=== PATIENT | female | born 1930 | race Caucasian/White ===

== ENCOUNTER 2016-02-20 11:49 | Inpatient (IN) | payer MEDICARE ==
[2016-02-20 13:36] LABS: Basophils % (Auto) 0.7 % (0.0-1.8); Eosinophils % (Auto) 2.3 % (0.0-4.3); Hematocrit 39.2 % (30.3-42.9); Hemoglobin 12.8 gm/dl (10.1-14.3); Mean Corpuscular HGB Conc 33 % (30-34); Mean Corpuscular Hemoglobin 29 pg (28-32); Mean Corpuscular Volume 89 fl (79-97); Platelet Count 228 K/mm3 (140-440); Red Blood Count 4.42 M/mm3 (3.65-5.03); Red Cell Distribution Width 13.7 % (13.2-15.2); White Blood Count 9.1 K/mm3 (4.5-11.0)
[2016-02-20 13:50] LABS: Bilirubin,Urine NEG (Negative); Blood,Urine SM (Negative); Ketones,Urine NEG (Negative); Leukocyte Esterase,Urine NEG (Negative); Nitrite,Urine NEG (Negative); Urobilinogen,Urine < 2.0 mg/dL (<2.0); WBC,Urine < 1.0 /HPF (0.0-6.0)
[2016-02-20 13:51] LABS: Partial Thromboplastin Time 43.9 Sec. (24.2-36.6)
[2016-02-20 13:55] LABS: Creatine Kinase MB 2.9 ng/mL (0.0-4.0)
[2016-02-20 13:58] LABS: Anion Gap 22 mmol/L; BUN/Creatinine Ratio 24.28; Blood Urea Nitrogen 17 mg/dL (7-17); Calcium 9.1 mg/dL (8.4-10.2); Carbon Dioxide 24 mmol/L (22-30); Chloride 97.8 mmol/L (98-107); Creatine Kinase 140 units/L (30-135); Glucose 221 mg/dL (65-100); Potassium 4.3 mmol/L (3.6-5.0); Sodium 139 mmol/L (137-145)
[2016-02-20] MEDS ORDERED: PROVENTIL IH ONE (15:07)
[2016-02-20] MEDS ORDERED: ATROVENT IH ONE (15:07)
[2016-02-20] MEDS ORDERED: DELTASONE PO ONE (15:07)
--- NOTE | 2016-02-20 15:49 | Emergency Department Report ---
HPI - General Chief Complaint: Dyspnea/Respdistress Time Seen by Provider: 02/20/16 12:07 - HPI HPI: Chief complaint: Shortness of breath and cough HPI: Patient is an 86-year-old female with a history of asthma is been gradually having worse shortness of breath and wheezing and coughing since Monday. Patient saw her primary care doctor on Monday and was diagnosed with possible pneumonia. Patient was given an antibiotic and cough medication but she seems to be getting worse. Patient was brought in by EMS and noted a pulse ox of 94. Patient given an albuterol treatment with some improvement. Mode of arrival: EMS Source: Patient and family member Began: Monday Duration: Continuous Context: See above Quality: Soreness with cough Severity: 4] out of 10 Improved with: Nebulizer Worsened with: Shortness of breath worse on exertion Associated signs and symptoms: No nausea, vomiting, diarrhea or fever. Positive white sputum production. ED Past Medical Hx - Past Medical History Previous Medical History?: Yes Hx Hypertension: Yes Hx Heart Attack/AMI: Yes Hx Congestive Heart Failure: Yes Hx Diabetes: Yes Hx Asthma: Yes - Surgical History Additional Surgical History: bypass - Social History Smoking Status: Never Smoker Substance Use Type: None - Medications Home Medications: Home Medications Medication Instructions Recorded Confirmed Last Taken Type Hydrochlorothiazide 02/20/16 Unknown History Insulin Glargine 20 units SQ QHS MDD 20-30 units 02/20/16 02/20/16 Unknown History sliding scale >200 Lipitor 10 mg PO QDAY 02/20/16 02/20/16 Unknown History Warfarin 0.5 mg PO QDAY 02/20/16 02/20/16 Unknown History glipiZIDE 0.5 mg PO QDAY 02/20/16 02/20/16 Unknown History metFORMIN 1,000 mg PO BID 02/20/16 02/20/16 Unknown History ED Review of Systems ROS: Stated complaint: SOB Other details as noted in HPI ROS Constitutional: No fever ENT: No uri symptoms Cardiovascular: No chest pain Respiratory: See HPI GI: No nausea vomiting or diarrhea : No dysuria frequency or urgency, Skin: No rash Neuro: No focal weakness or numbness Psych: No depression Juancarlos/lymph: No edema Physical Exam - Physical Exam Vital Signs: Vital Signs 02/20/16 12:14 Temperature 99.5 F Pulse Rate 106 H Respiratory 22 Rate Blood Pressure 176/71 [Right] O2 Sat by Pulse 95 Oximetry Physical Exam: GENERAL: The patient is well-developed well-nourished . HEENT: Normocephalic. Atraumatic. Extraocular motions are intact. Patient has moist mucous membranes. NECK: Supple. No meningitic signs are noted. There is no adenopathy noted. CHEST/LUNGS: Scattered expiratory wheezes. There is no respiratory distress noted. HEART/CARDIOVASCULAR: Regular. There is no tachycardia. There is no gallop rub or murmur. ABDOMEN: Abdomen is soft, nontender. Patient has normal bowel sounds. There is no abdominal distention. SKIN: There is no rash. There is no edema. There is no diaphoresis. NEURO: The patient is awake, alert, and oriented. The patient is cooperative. The patient has no focal neurologic deficits. The patient has normal speech. MUSCULOSKELETAL: There is no tenderness or deformity. There is no limitation range of motion. There is no evidence of acute injury. ED Course Vital Signs 02/20/16 12:14 Temperature 99.5 F Pulse Rate 106 H Respiratory 22 Rate Blood Pressure 176/71 [Right] O2 Sat by Pulse 95 Oximetry - Reevaluation(s) Reevaluation #1: 02/20/16 Patient treated with a nebulizer treatment and 60 mg of oral prednisone and has persistent exertional shortness of breath. ED Medical Decision Making - Lab Data Result diagrams: 02/20/16 13:23 02/20/16 13:23 Laboratory Tests 02/20/16 02/20/16 02/20/16 13:23 13:23 13:29 PT 22.7 H INR 2.00 H APTT 43.9 H Total Creatine Kinase 140 H CK-MB (CK-2) 2.9 CK-MB (CK-2) Rel Index 2.0 Troponin T < 0.010 Urine pH 7.0 Ur Specific [place] 1.013 Urine Protein 100 mg/dl Urine Glucose (UA) >=500 Urine Ketones Neg Urine Blood Sm Urine Urobilinogen < 2.0 Ur Leukocyte Esterase Neg Urine WBC (Auto) < 1.0 Urine RBC (Auto) 4.0 - EKG Data -: EKG Interpreted by Nj EKG shows normal: sinus rhythm Rate: tachycardia (109) - EKG Data When compared to previous EKG there are: previous EKG unavailable Interpretation: nonspecific ST-T wave oskar - Radiology Data interpreted by me: Chest x-ray shows no acute process. Critical care attestation.: If time is entered above; I have spent that time in minutes in the direct care of this critically ill patient, excluding procedure time. ED Disposition Clinical Impression: Asthmatic bronchitis Qualifiers: Asthma severity: moderate persistent Asthma complication type: with acute exacerbation Qualified Code(s): J45.41 - Moderate persistent asthma with (acute ) exacerbation Disposition: OP ADMITTED IP TO THIS HOSP Is pt being admited?: Yes Does the pt Need Aspirin: Yes Condition: Fair Time of Disposition: 15:50 (admit to the hospitalist)
[2016-02-20] MEDS ORDERED: ASPIRIN PO ONE (15:51)
[2016-02-20] MEDS ORDERED: APRESOLINE ONE (16:25)
[2016-02-20] MEDS ORDERED: APRESOLINE IV ONE (16:44)
--- NOTE | 2016-02-20 18:35 | Event Note ---
Date: 02/20/16 See H/p in reports Asthma exacerbation Acute Bronchitis not responding to out patient treatment IDDM Anticoagulation
[2016-02-20] MEDS ORDERED: DULCOLAX PR PRN (18:44)
[2016-02-20] MEDS ORDERED: MILK OF MAGNESIA PO PRN (18:44)
[2016-02-20] MEDS ORDERED: TYLENOL PO PRN (18:44)
[2016-02-20] MEDS ORDERED: WARFARIN 0.5 MG PO SCH (18:45)
[2016-02-20] MEDS ORDERED: DUONEB 0.5 MG-3 MG/3 ML SOLN IH PRN (18:53)
[2016-02-20] MEDS ORDERED: PROVENTIL IH PRN (19:14)
[2016-02-20] MEDS ORDERED: D5NS 1,000 ML IV SCH (20:00)
[2016-02-20] MEDS ORDERED: NOVOLOG SUB-Q ONE (20:00)
--- NOTE | 2016-02-20 20:59 | History and Physical Report ---
CHIEF COMPLAINT: Increasing shortness of breath and wheezing for the last 2 days. Also, low-grade fever for 2 days. HISTORY OF PRESENT ILLNESS: This 86-year-old with history of insulin-dependent diabetes, anticoagulation, comes in for cough productive of yellow sputum and shortness of breath with wheezing for the last 2 days. The patient has mild respiratory distress. No chest pain, no palpitations. PAST MEDICAL HISTORY: Significant for hypertension, but not on any hypertensive medications, coronary artery disease, hyperlipidemia, congestive heart failure, insulin-dependent diabetes, and asthma. PAST SURGICAL HISTORY: Coronary artery bypass. SOCIAL HISTORY: Does not smoke. No alcohol, no recreational drugs. Lives with family. FAMILY HISTORY: Significant for coronary artery disease and hypertension. CURRENT MEDICATIONS: Hydrochlorothiazide 25 mg daily, Lipitor 10 mg p.o. daily, glipizide 0.5 p.o. daily, metformin 1000 mg p.o. b.i.d., Glargine insulin 20 units subcutaneous at bedtime, and Coumadin 5 mg daily. REVIEW OF SYSTEMS: Significant for cough, shortness of breath and wheezing and cough productive of yellow sputum and low grade fever. Otherwise, review of systems is essentially negative. PHYSICAL EXAMINATION: GENERAL: Elderly female, cooperative during examination, coughing while examining her. VITAL SIGNS: Temperature is 99.5, pulse is 106, respirations 22, blood pressure is 176/71, and sats 95%. HEENT: Unremarkable. Pupils equal and reactive. NECK: Supple, no lymphadenopathy, no thyromegaly. LUNGS: Bilateral inspiratory and expiratory rhonchi present. CARDIOVASCULAR: S1, S2 heard. No gallop, no murmur, no rub. Apical impulse in left fifth intercostal space and midclavicular line. ABDOMEN: Soft and benign. No hepatosplenomegaly. No guarding, no rigidity. Hernial orifices are normal. EXTREMITIES: Good pedal pulses. No pedal edema. CENTRAL NERVOUS SYSTEM: Alert and oriented x 4, nonfocal exam. Cranial nerves are normal. Power is 5/5 in all four extremities. LABORATORY DATA: Show white count of 9100, H and H is 12.8 and 39.8, platelet count is 228,000. INR is 2.0. Sodium is 139, potassium is 4.3, chloride is 97.8, BUN and creatinine is 17 and 0.7. Glucose is 221, total creatinine kinase is 140. Urine protein is 100. Urine glucose is more than 500. Chest x-ray does not show any infiltrates. A brief exam shows bilateral inspiratory and expiratory rhonchi present. Labs already mentioned. ASSESSMENT AND PLAN: 1. Asthma exacerbation. The patient was started on DuoNeb, Levaquin and Solu-Medrol 60 mg q. 8 hours. 2. Hypertension. The patient is on hydrochlorothiazide at home. We will change to losartan 100 mg daily. 3. Insulin-dependent diabetes mellitus, on insulin Glargine and oral hypoglycemics. We will stop the oral hypoglycemics and just do the Lantus and basal insulin coverage. 4. Anticoagulation for atrial fibrillation. Continue Coumadin at 5 mg daily. 5. Hyperlipidemia. Continue Lipitor. DISCHARGE PLANNING ISSUES: The patient will be discharged only on Lantus and no oral hypoglycemics like metformin or glipizide. The patient to be discharged on basal bolus insulin. DVT prophylaxis, Lovenox 40 mg subcutaneous daily. JOB# [id number] AMY/DANY
[2016-02-20] MEDS: LEVAQUIN 750MG/150ML 150 ML IV SCH (21:00)
[2016-02-20] MEDS: NACL 0.45% 1000 ML 1,000 ML IV SCH (21:24)
[2016-02-20] MEDS: DUONEB 0.5 MG-3 MG/3 ML SOLN IH SCH (21:39)
[2016-02-20] MEDS ORDERED: NON-FORMULARY (Insulin Glargine 20 UNITS) SQ SCH (22:00)
[2016-02-20] MEDS ORDERED: LEVEMIR SUB-Q SCH (22:00)
[2016-02-20] MEDS: PERCOCET 5/325 PO PRN (22:35)
--- NOTE | 2016-02-21 00:13 | Admit Criteria Form ---
Admission Criteria Documentation: ASTHMA Clinical Indications for Admission to Inpatient Care (Place 'X' for any and all applicable criteria): Admission is indicated for ANY ONE of the following (1)(2)(3)(4)(5): [ ]I. Absent or markedly diminished breath sounds (silent chest) [ ]II. Oxygen saturation < 92% [ ]III. PaCO2 = / > 42 mm Hg (5.6 kPa) [ ]IV. Peak expiratory flow rate < 40% of predicted or personal best after treatment. [ ]V. Peak expiratory flow rate < 33% of predicted or personal before after treatment [ ]. Change in mental status [ ]VII. Ventilatory support required [ ]VIII. PaO2 < 60 mm Hg (8.0 kPa) [ ]IX. Cyanosis [ ]X. Cardiac dysrhythmia (e.g., bradycardia) [ ]XI. Hemodynamic instability [ ]XII. Radiographic evidence of complication requiring inpatient treatment (e.g., pneumonia, pneumothorax) [X ]XIII. Inpatient admission required rather than observation care (also use Asthma: Observation Care guideline as appropriate) because of ANY ONE of the following: [X ]a) Respiratory finding that is severe or persistent (eg, dyspnea, tachypnea, accessory muscle use) [ ]b) Airflow measurements less than 60% of predicted or personal best that persist (e.g., over 24 hours) or worsen despite treatments [ ]c) Supplemental oxygen or respiratory treatments for over 24 hours that are performable only in acute inpatient setting [ ]d) Other condition, treatment or monitoring requiring inpatient admission. Extended stay beyond goal length of stay may be needed for (26)(27)(28): [ ]a) Severe respiratory failure (23) (29) (30) [ ]b) Secondary causes and complications (25) [ ]c) Status asthmaticus [ ]d) Chronic obstructive asthma [ ]e) Older patients (29) [ ]f) Slow resolution [ ]g) Clinically significant exacerbation of comorbidities (eg, josh. heart failure, atrial fibrillation) The original [employer] content created by [employer] has been revised. The portions of the content which have been revised are identified through the use of italic text or in bold, and [email or web address] has neither reviewed nor approved the modified material. All other unmodified content is copyright [employer] Please see references footnoted in the original [facility] edition 2016 Admission Criteria Met: Yes
[2016-02-21] MEDS: ZOFRAN IV PRN (01:29)
[2016-02-21] MEDS: DUONEB 0.5 MG-3 MG/3 ML SOLN IH SCH ×4 (02:45→19:37)
[2016-02-21] MEDS: TESSALON PERLES PO SCH ×2 (06:21→22:25)
[2016-02-21 06:27] LABS: Basophils % (Auto) 0.2 % (0.0-1.8); Hematocrit 38.5 % (30.3-42.9); Hemoglobin 12.4 gm/dl (10.1-14.3); Mean Corpuscular HGB Conc 32 % (30-34); Mean Corpuscular Hemoglobin 29 pg (28-32); Mean Corpuscular Volume 89 fl (79-97); Platelet Count 228 K/mm3 (140-440); Red Blood Count 4.34 M/mm3 (3.65-5.03); Red Cell Distribution Width 13.8 % (13.2-15.2); White Blood Count 6.4 K/mm3 (4.5-11.0)
[2016-02-21 06:48] LABS: Anion Gap 21 mmol/L; Blood Urea Nitrogen 24 mg/dL (7-17); Calcium 8.7 mg/dL (8.4-10.2); Carbon Dioxide 22 mmol/L (22-30); Chloride 96.3 mmol/L (98-107); Glucose 346 mg/dL (65-100); Sodium 135 mmol/L (137-145)
[2016-02-21 06:51] LABS: INR 1.56 (0.87-1.13)
--- NOTE | 2016-02-21 10:30 | XRay Report ---
CHEST X-RAY, 2 VIEWS History: Chest pain. Findings: Interval CABG changes since 10/16/10. Heart size and pulmonary vascularity are within normal limits. The lungs are clear. There is suggestion of a trace left pleural effusion. No pneumothorax. The bony structures are demineralized with diffuse arthritic changes. Impression: Trace left pleural effusion.
[2016-02-21] MEDS: LOVENOX SUB-Q SCH (10:37)
[2016-02-21] MEDS: NOVOLOG SUB-Q SCH ×3 (14:21→22:21)
[2016-02-21] MEDS ORDERED: COUMADIN PO SCH (17:00)
--- NOTE | 2016-02-21 18:14 | Progress Note ---
Assessment and Plan Assessment and plan: 1. Asthma exacerbation Started on antibiotic, IV corticosteroids, inhaled bronchodilators, supplemental oxygen as needed Start tapering corticosteroids 2. Diabetes Blood sugars significantly elevated likely secondary to corticosteroid use Increased insulin dose Continue Accu-Cheks and SSI to assess insulin requirements 3. A. fib Anticoagulated with Coumadin, but INR subtherapeutic; adjust dose Not on any rate control medication based on the list available; patient is not Macedonian-speaking and no family member present HR in low 100s; start beta yoel and monitor 4. CAD and HTN per records, but not on any medications; will try to contact family 5. DVT prophylaxis Lovenox until INR becomes therapeutic on Coumadin History Interval history: Not Macedonian-speaking, no family member present to translate Seems to be in no discomfort Hospitalist Physical - Constitutional Vitals: Temp Pulse Resp BP Pulse Ox 97.8 F 119 H 20 139/71 67 L 02/21/16 07:30 02/21/16 13:11 02/21/16 13:11 02/21/16 07:30 02/21/16 07:30 General appearance: Present: no acute distress, obese - EENT Eyes: Present: PERRL, EOM intact. Absent: scleral icterus, conjunctival injection - Neck Neck: Present: supple, normal ROM. Absent: masses or JVD - Respiratory Respiratory effort: normal Respiratory: bilateral: diminished, rhonchi, wheezing - Cardiovascular Rhythm: irregularly irregular Heart Sounds: Present: S1 & S2. Absent: systolic murmur - Extremities Extremities: no ischemia - Abdominal General gastrointestinal: soft, non-tender, non-distended, normal bowel sounds - Neurologic Neurologic: moves all extremities Results - Labs CBC & Chem 7: 02/21/16 05:18 02/21/16 05:18 Labs: Laboratory Last Values WBC 6.4 K/mm3 (4.5-11.0) 02/21/16 05:18 RBC 4.34 M/mm3 (3.65-5.03) 02/21/16 05:18 Hgb 12.4 gm/dl (10.1-14.3) 02/21/16 05:18 Hct 38.5 % (30.3-42.9) 02/21/16 05:18 MCV 89 fl (79-97) 02/21/16 05:18 MCH 29 pg (28-32) 02/21/16 05:18 MCHC 32 % (30-34) 02/21/16 05:18 RDW 13.8 % (13.2-15.2) 02/21/16 05:18 Plt Count 228 K/mm3 (140-440) 02/21/16 05:18 Lymph % (Auto) 11.9 % (13.4-35.0) L 02/21/16 05:18 [place] % (Auto) 1.0 % (0.0-7.3) 02/21/16 05:18 Eos % (Auto) 0.0 % (0.0-4.3) 02/21/16 05:18 Baso % (Auto) 0.2 % (0.0-1.8) 02/21/16 05:18 Lymph # 0.8 K/mm3 (1.2-5.4) L 02/21/16 05:18 [place] # 0.1 K/mm3 (0.0-0.8) 02/21/16 05:18 Eos # 0.0 K/mm3 (0.0-0.4) 02/21/16 05:18 Baso # 0.0 K/mm3 (0.0-0.1) 02/21/16 05:18 Seg Neutrophils % 86.9 % (40.0-70.0) H 02/21/16 05:18 Seg Neutrophils # 5.6 K/mm3 (1.8-7.7) 02/21/16 05:18 PT 18.6 Sec. (12.2-14.9) H 02/21/16 05:18 INR 1.56 (0.87-1.13) H 02/21/16 05:18 APTT 43.9 Sec. (24.2-36.6) H 02/20/16 13:23 Sodium 135 mmol/L (137-145) L 02/21/16 05:18 Potassium 4.0 mmol/L (3.6-5.0) 02/21/16 05:18 Chloride 96.3 mmol/L (98-107) L 02/21/16 05:18 Carbon Dioxide 22 mmol/L (22-30) 02/21/16 05:18 Anion Gap 21 mmol/L 02/21/16 05:18 BUN 24 mg/dL (7-17) H 02/21/16 05:18 Creatinine 0.8 mg/dL (0.7-1.2) 02/21/16 05:18 Estimated GFR > 60 ml/min 02/21/16 05:18 BUN/Creatinine Ratio 30.00 % 02/21/16 05:18 Glucose 346 mg/dL (65-100) H 02/21/16 05:18 POC Glucose 299 (70-105) H 02/21/16 17:31 Hemoglobin A1c 10.9 % (4-6) H 02/20/16 13:23 Calcium 8.7 mg/dL (8.4-10.2) 02/21/16 05:18 Total Creatine Kinase 140 units/L (30-135) H 02/20/16 13:23 CK-MB (CK-2) 2.9 ng/mL (0.0-4.0) 02/20/16 13:23 CK-MB (CK-2) Rel Index 2.0 (0-4) 02/20/16 13:23 Troponin T < 0.010 ng/mL (0.00-0.029) 02/20/16 13:23 NT-Pro-B Natriuret Pep 303.7 pg/mL (0-900) 02/20/16 13:23 Urine Color Straw (Yellow) 02/20/16 13:29 Urine Turbidity Clear (Clear) 02/20/16 13:29 Urine pH 7.0 (5.0-7.0) 02/20/16 13:29 Ur Specific [place] 1.013 (1.003-1.030) 02/20/16 13:29 Urine Protein 100 mg/dl mg/dL (Negative) 02/20/16 13:29 Urine Glucose (UA) >=500 mg/dL (Negative) 02/20/16 13:29 Urine Ketones Neg mg/dL (Negative) 02/20/16 13:29 Urine Blood Sm (Negative) 02/20/16 13:29 Urine Nitrite Neg (Negative) 02/20/16 13:29 Urine Bilirubin Neg (Negative) 02/20/16 13:29 Urine Urobilinogen < 2.0 mg/dL (<2.0) 02/20/16 13:29 Ur Leukocyte Esterase Neg (Negative) 02/20/16 13:29 Urine WBC (Auto) < 1.0 /HPF (0.0-6.0) 02/20/16 13:29 Urine RBC (Auto) 4.0 /HPF (0.0-6.0) 02/20/16 13:29
[2016-02-21] MEDS: LEVAQUIN 750MG/150ML 150 ML IV SCH (22:13)
[2016-02-21] MEDS: LEVEMIR SUB-Q SCH (22:22)
[2016-02-21] MEDS: LOPRESSOR PO SCH (22:29)
[2016-02-22] MEDS: ZOFRAN IV PRN (02:28)
[2016-02-22] MEDS: PERCOCET 5/325 PO PRN (02:29)
[2016-02-22] MEDS: DUONEB 0.5 MG-3 MG/3 ML SOLN IH SCH ×4 (02:38→19:49)
[2016-02-22] MEDS: NACL 0.45% 1000 ML 1,000 ML IV SCH ×2 (05:25→18:22)
[2016-02-22 06:38] LABS: INR 1.54 (0.87-1.13)
[2016-02-22] MEDS: NOVOLOG SUB-Q SCH ×4 (09:06→23:43)
[2016-02-22] MEDS ORDERED: PROVENTIL IH PRN (09:14)
[2016-02-22] MEDS: LOVENOX SUB-Q SCH (12:28)
[2016-02-22] MEDS: LOPRESSOR PO SCH ×2 (12:29→21:09)
[2016-02-22] MEDS: TESSALON PERLES PO SCH ×2 (12:29→21:08)
[2016-02-22] MEDS ORDERED: COUMADIN PO SCH (17:00)
--- NOTE | 2016-02-22 18:35 | Progress Note ---
Assessment and Plan Assessment and plan: 1. Asthma exacerbation Started on antibiotic, IV corticosteroids, inhaled bronchodilators, supplemental oxygen as needed Tapering corticosteroids Slow improvement 2. Diabetes Blood sugars significantly elevated likely secondary to corticosteroid use Adjusting insulin dose Continue Accu-Cheks and SSI 3. A. fib Anticoagulated with Coumadin, but INR subtherapeutic; adjusting dose Not on any rate control medication based on the list available HR in low 100s; started on beta yoel yesterday Monitor and adjust dose 4. CAD and HTN per records, but not on any medications; trying to contact family 5. DVT prophylaxis Lovenox until INR becomes therapeutic on Coumadin History Interval history: Not Latvian-speaking, a family member present today to translate; complains of chest tightness, shortness of breath improved Hospitalist Physical - Constitutional Vitals: Temp Pulse Resp BP Pulse Ox 98 F 100 H 16 162/76 94 02/22/16 07:00 02/22/16 14:03 02/22/16 14:03 02/22/16 07:00 02/22/16 09:13 General appearance: Present: no acute distress, obese - EENT Eyes: Present: PERRL, EOM intact. Absent: scleral icterus, conjunctival injection - Neck Neck: Present: supple, normal ROM. Absent: masses or JVD - Respiratory Respiratory effort: normal Respiratory: bilateral: diminished, wheezing (expiratory wheezes), negative: rhonchi - Cardiovascular Rhythm: irregularly irregular Heart Sounds: Present: S1 & S2. Absent: systolic murmur - Extremities Extremities: no ischemia - Abdominal General gastrointestinal: soft, non-tender, non-distended, normal bowel sounds - Neurologic Neurologic: CNII-XII intact, no focal deficits Results - Labs CBC & Chem 7: 02/21/16 05:18 02/21/16 05:18 Labs: Laboratory Last Values WBC 6.4 K/mm3 (4.5-11.0) 02/21/16 05:18 RBC 4.34 M/mm3 (3.65-5.03) 02/21/16 05:18 Hgb 12.4 gm/dl (10.1-14.3) 02/21/16 05:18 Hct 38.5 % (30.3-42.9) 02/21/16 05:18 MCV 89 fl (79-97) 02/21/16 05:18 MCH 29 pg (28-32) 02/21/16 05:18 MCHC 32 % (30-34) 02/21/16 05:18 RDW 13.8 % (13.2-15.2) 02/21/16 05:18 Plt Count 228 K/mm3 (140-440) 02/21/16 05:18 Lymph % (Auto) 11.9 % (13.4-35.0) L 02/21/16 05:18 [place] % (Auto) 1.0 % (0.0-7.3) 02/21/16 05:18 Eos % (Auto) 0.0 % (0.0-4.3) 02/21/16 05:18 Baso % (Auto) 0.2 % (0.0-1.8) 02/21/16 05:18 Lymph # 0.8 K/mm3 (1.2-5.4) L 02/21/16 05:18 [place] # 0.1 K/mm3 (0.0-0.8) 02/21/16 05:18 Eos # 0.0 K/mm3 (0.0-0.4) 02/21/16 05:18 Baso # 0.0 K/mm3 (0.0-0.1) 02/21/16 05:18 Seg Neutrophils % 86.9 % (40.0-70.0) H 02/21/16 05:18 Seg Neutrophils # 5.6 K/mm3 (1.8-7.7) 02/21/16 05:18 PT 18.5 Sec. (12.2-14.9) H 02/22/16 05:19 INR 1.54 (0.87-1.13) H 02/22/16 05:19 APTT 43.9 Sec. (24.2-36.6) H 02/20/16 13:23 Sodium 135 mmol/L (137-145) L 02/21/16 05:18 Potassium 4.0 mmol/L (3.6-5.0) 02/21/16 05:18 Chloride 96.3 mmol/L (98-107) L 02/21/16 05:18 Carbon Dioxide 22 mmol/L (22-30) 02/21/16 05:18 Anion Gap 21 mmol/L 02/21/16 05:18 BUN 24 mg/dL (7-17) H 02/21/16 05:18 Creatinine 0.8 mg/dL (0.7-1.2) 02/21/16 05:18 Estimated GFR > 60 ml/min 02/21/16 05:18 BUN/Creatinine Ratio 30.00 % 02/21/16 05:18 Glucose 346 mg/dL (65-100) H 02/21/16 05:18 POC Glucose 267 (70-105) H 02/22/16 16:25 Hemoglobin A1c 10.9 % (4-6) H 02/20/16 13:23 Calcium 8.7 mg/dL (8.4-10.2) 02/21/16 05:18 Total Creatine Kinase 140 units/L (30-135) H 02/20/16 13:23 CK-MB (CK-2) 2.9 ng/mL (0.0-4.0) 02/20/16 13:23 CK-MB (CK-2) Rel Index 2.0 (0-4) 02/20/16 13:23 Troponin T < 0.010 ng/mL (0.00-0.029) 02/20/16 13:23 NT-Pro-B Natriuret Pep 303.7 pg/mL (0-900) 02/20/16 13:23 Urine Color Straw (Yellow) 02/20/16 13:29 Urine Turbidity Clear (Clear) 02/20/16 13:29 Urine pH 7.0 (5.0-7.0) 02/20/16 13:29 Ur Specific [place] 1.013 (1.003-1.030) 02/20/16 13:29 Urine Protein 100 mg/dl mg/dL (Negative) 02/20/16 13:29 Urine Glucose (UA) >=500 mg/dL (Negative) 02/20/16 13:29 Urine Ketones Neg mg/dL (Negative) 02/20/16 13:29 Urine Blood Sm (Negative) 02/20/16 13:29 Urine Nitrite Neg (Negative) 02/20/16 13:29 Urine Bilirubin Neg (Negative) 02/20/16 13:29 Urine Urobilinogen < 2.0 mg/dL (<2.0) 02/20/16 13:29 Ur Leukocyte Esterase Neg (Negative) 02/20/16 13:29 Urine WBC (Auto) < 1.0 /HPF (0.0-6.0) 02/20/16 13:29 Urine RBC (Auto) 4.0 /HPF (0.0-6.0) 02/20/16 13:29
[2016-02-22] MEDS: LEVAQUIN 750MG/150ML 150 ML IV SCH (21:04)
[2016-02-22] MEDS: LEVEMIR SUB-Q SCH (23:44)
[2016-02-23 05:48] LABS: INR 1.34 (0.87-1.13)
[2016-02-23] MEDS: DUONEB 0.5 MG-3 MG/3 ML SOLN IH SCH ×3 (07:56→19:58)
[2016-02-23] MEDS: NOVOLOG SUB-Q SCH ×4 (08:49→21:44)
[2016-02-23] MEDS: NACL 0.45% 1000 ML 1,000 ML IV SCH (09:21)
[2016-02-23] MEDS: TESSALON PERLES PO SCH ×2 (09:22→21:38)
[2016-02-23] MEDS: LOVENOX SUB-Q SCH ×2 (09:22→21:37)
[2016-02-23] MEDS: LOPRESSOR PO SCH ×2 (09:22→21:38)
[2016-02-23] MEDS ORDERED: LOVENOX SUB-Q SCH (11:00)
--- NOTE | 2016-02-23 16:45 | Progress Note ---
Assessment and Plan Assessment and plan: 1. Asthma exacerbation Started on antibiotic, IV corticosteroids, inhaled bronchodilators, supplemental oxygen as needed Tapering corticosteroids Slow improvement 2. Diabetes Blood sugars significantly elevated likely secondary to corticosteroid use Adjusting insulin dose Continue Accu-Cheks and SSI 3. A. fib Anticoagulated with Coumadin, but INR subtherapeutic; adjusting dose; further decrease today, so will use Lovenox treatment dose until INR becomes therapeutic Not on any rate control medication based on the list available HR in low 100s; started on beta yoel Monitor and adjust dose 4. CAD and HTN per records, but not on any medications; trying to discuss with family 5. DVT prophylaxis Lovenox until INR becomes therapeutic on Coumadin History Interval history: Not Iranian-speaking, a family member present today to translate; complains of chest discomfort Hospitalist Physical - Constitutional Vitals: Temp Pulse Resp BP Pulse Ox 99.1 F 88 18 165/73 97 02/23/16 06:55 02/23/16 13:45 02/23/16 13:45 02/23/16 06:55 02/23/16 07:55 General appearance: Present: no acute distress, obese - EENT Eyes: Present: PERRL, EOM intact. Absent: scleral icterus, conjunctival injection - Neck Neck: Present: supple, normal ROM. Absent: masses or JVD - Respiratory Respiratory effort: normal Respiratory: bilateral: diminished (coarse breath sounds), wheezing, negative: rales - Cardiovascular Rhythm: irregularly irregular Heart Sounds: Present: S1 & S2. Absent: systolic murmur - Extremities Extremities: no ischemia - Abdominal General gastrointestinal: soft, non-tender, non-distended, normal bowel sounds - Psychiatric Psychiatric: cooperative - Neurologic Neurologic: CNII-XII intact, no focal deficits Results - Labs CBC & Chem 7: 02/21/16 05:18 02/21/16 05:18 Labs: Laboratory Last Values WBC 6.4 K/mm3 (4.5-11.0) 02/21/16 05:18 RBC 4.34 M/mm3 (3.65-5.03) 02/21/16 05:18 Hgb 12.4 gm/dl (10.1-14.3) 02/21/16 05:18 Hct 38.5 % (30.3-42.9) 02/21/16 05:18 MCV 89 fl (79-97) 02/21/16 05:18 MCH 29 pg (28-32) 02/21/16 05:18 MCHC 32 % (30-34) 02/21/16 05:18 RDW 13.8 % (13.2-15.2) 02/21/16 05:18 Plt Count 228 K/mm3 (140-440) 02/21/16 05:18 Lymph % (Auto) 11.9 % (13.4-35.0) L 02/21/16 05:18 [place] % (Auto) 1.0 % (0.0-7.3) 02/21/16 05:18 Eos % (Auto) 0.0 % (0.0-4.3) 02/21/16 05:18 Baso % (Auto) 0.2 % (0.0-1.8) 02/21/16 05:18 Lymph # 0.8 K/mm3 (1.2-5.4) L 02/21/16 05:18 [place] # 0.1 K/mm3 (0.0-0.8) 02/21/16 05:18 Eos # 0.0 K/mm3 (0.0-0.4) 02/21/16 05:18 Baso # 0.0 K/mm3 (0.0-0.1) 02/21/16 05:18 Seg Neutrophils % 86.9 % (40.0-70.0) H 02/21/16 05:18 Seg Neutrophils # 5.6 K/mm3 (1.8-7.7) 02/21/16 05:18 PT 16.5 Sec. (12.2-14.9) H 02/23/16 05:11 INR 1.34 (0.87-1.13) H 02/23/16 05:11 APTT 43.9 Sec. (24.2-36.6) H 02/20/16 13:23 Sodium 135 mmol/L (137-145) L 02/21/16 05:18 Potassium 4.0 mmol/L (3.6-5.0) 02/21/16 05:18 Chloride 96.3 mmol/L (98-107) L 02/21/16 05:18 Carbon Dioxide 22 mmol/L (22-30) 02/21/16 05:18 Anion Gap 21 mmol/L 02/21/16 05:18 BUN 24 mg/dL (7-17) H 02/21/16 05:18 Creatinine 0.8 mg/dL (0.7-1.2) 02/21/16 05:18 Estimated GFR > 60 ml/min 02/21/16 05:18 BUN/Creatinine Ratio 30.00 % 02/21/16 05:18 Glucose 346 mg/dL (65-100) H 02/21/16 05:18 POC Glucose 172 (70-105) H 02/23/16 16:05 Hemoglobin A1c 10.9 % (4-6) H 02/20/16 13:23 Calcium 8.7 mg/dL (8.4-10.2) 02/21/16 05:18 Total Creatine Kinase 140 units/L (30-135) H 02/20/16 13:23 CK-MB (CK-2) 2.9 ng/mL (0.0-4.0) 02/20/16 13:23 CK-MB (CK-2) Rel Index 2.0 (0-4) 02/20/16 13:23 Troponin T < 0.010 ng/mL (0.00-0.029) 02/20/16 13:23 NT-Pro-B Natriuret Pep 303.7 pg/mL (0-900) 02/20/16 13:23 Urine Color Straw (Yellow) 02/20/16 13:29 Urine Turbidity Clear (Clear) 02/20/16 13:29 Urine pH 7.0 (5.0-7.0) 02/20/16 13:29 Ur Specific [place] 1.013 (1.003-1.030) 02/20/16 13:29 Urine Protein 100 mg/dl mg/dL (Negative) 02/20/16 13:29 Urine Glucose (UA) >=500 mg/dL (Negative) 02/20/16 13:29 Urine Ketones Neg mg/dL (Negative) 02/20/16 13:29 Urine Blood Sm (Negative) 02/20/16 13:29 Urine Nitrite Neg (Negative) 02/20/16 13:29 Urine Bilirubin Neg (Negative) 02/20/16 13:29 Urine Urobilinogen < 2.0 mg/dL (<2.0) 02/20/16 13:29 Ur Leukocyte Esterase Neg (Negative) 02/20/16 13:29 Urine WBC (Auto) < 1.0 /HPF (0.0-6.0) 02/20/16 13:29 Urine RBC (Auto) 4.0 /HPF (0.0-6.0) 02/20/16 13:29
[2016-02-23] MEDS ORDERED: COUMADIN PO SCH (17:00)
[2016-02-23] MEDS: PERCOCET 5/325 PO PRN (18:36)
[2016-02-23] MEDS: LEVAQUIN 750MG/150ML 150 ML IV SCH (21:24)
[2016-02-23] MEDS: LEVEMIR SUB-Q SCH (21:39)
[2016-02-24] MEDS: NACL 0.45% 1000 ML 1,000 ML IV SCH ×2 (00:14→12:43)
[2016-02-24 06:52] LABS: Hematocrit 41.6 % (30.3-42.9); Hemoglobin 13.4 gm/dl (10.1-14.3); Mean Corpuscular HGB Conc 32 % (30-34); Mean Corpuscular Hemoglobin 29 pg (28-32); Mean Corpuscular Volume 89 fl (79-97); Platelet Count 213 K/mm3 (140-440); Red Blood Count 4.68 M/mm3 (3.65-5.03); Red Cell Distribution Width 13.9 % (13.2-15.2)
[2016-02-24 07:10] LABS: INR 1.22 (0.87-1.13)
[2016-02-24 07:14] LABS: Anion Gap 20 mmol/L; Blood Urea Nitrogen 19 mg/dL (7-17); Calcium 8.6 mg/dL (8.4-10.2); Carbon Dioxide 24 mmol/L (22-30); Chloride 99.5 mmol/L (98-107); Glucose 200 mg/dL (65-100); Sodium 139 mmol/L (137-145)
[2016-02-24] MEDS: DUONEB 0.5 MG-3 MG/3 ML SOLN IH SCH ×3 (07:52→20:28)
[2016-02-24 08:49] LABS: Anisocytosis 1+; Basophils % (Manual) 0 % (0.0-1.8); Blastocytes % (Manual) 0 %; Diff Status Complete; Eosinophils % (Manual) 0 % (0.0-4.3)
[2016-02-24] MEDS: NOVOLOG SUB-Q SCH ×4 (08:53→21:43)
[2016-02-24] MEDS: LOVENOX SUB-Q SCH ×2 (11:54→21:22)
[2016-02-24] MEDS: LOPRESSOR PO SCH ×2 (11:55→21:23)
[2016-02-24] MEDS: TESSALON PERLES PO SCH ×2 (11:55→21:24)
--- NOTE | 2016-02-24 16:37 | Progress Note ---
Assessment and Plan Assessment and plan: Acute respiratory failure * Secondary to asthma exacerbation * Continue the treatment for asthma and supplemental oxygen as needed to keep oxygen saturation above 94% Acute Asthma exacerbation * on antibiotic, IV corticosteroids, inhaled bronchodilators, supplemental oxygen as needed * Slow improvement, we'll not taper steroid today Diabetes mellitus type 2 * Blood sugars significantly elevated likely secondary to corticosteroid use * Adjust insulin dose as needed * Continue Accu-Cheks and SSI Chronic A. fib * Anticoagulated with Coumadin, but INR subtherapeutic; * adjusting dose of Coumadin; * use Lovenox treatment dose until INR becomes therapeutic * started on beta yoel, Monitor and adjust dose Hypertension, uncontrolled, * but not on any medications at home * Continue metoprolol for now, monitor BP * Adjust medications as needed DVT prophylaxis * Lovenox until INR becomes therapeutic on Coumadin Leukocytosis, secondary to steroid History Interval history: Patient seen and examined. Medical records and medication list reviewed. No acute event overnight noted by the RN. Patient continues to complain of difficulty breathing with minimal exertion. Patient is tolerating diet. Heart INR is subtherapeutic, blood pressure remained uncontrolled. Discussed plan of care at bedside with patient. Hospitalist Physical - Physical exam Narrative exam: GENERAL: Elderly female sitting on bed appeared to be in no discomfort. HEENT: Normocephalic. Atraumatic. No conjunctival congestion or icterus. Patient has moist mucous membranes. NECK: Supple. Trachea midline. CHEST/LUNGS: Diffuse wheezes auscultated bilaterally, breathing nonlabored. No crackles or rhonchi. HEART/CARDIOVASCULAR: Regular in rate and rhythm. S1 and S2 positive. ABDOMEN: Abdomen is soft, nontender. Patient has normal bowel sounds. SKIN: There is no rash. Warm and dry. NEURO: No focal motor deficit. Follows command. MUSCULOSKELETAL: No joint effusion or tenderness. EXTRIMITY: No edema, no cyanosis or clubbing. PSYCH: Cooperative. - Constitutional Vitals: Temp Pulse Resp BP Pulse Ox 97.7 F 92 H 14 183/88 98 02/24/16 07:30 02/24/16 13:37 02/24/16 13:37 02/24/16 11:55 02/24/16 07:53 General appearance: Present: no acute distress, obese Results - Labs CBC & Chem 7: 02/24/16 06:15 02/24/16 06:15 Labs: Laboratory Last Values WBC 13.0 K/mm3 (4.5-11.0) H 02/24/16 06:15 RBC 4.68 M/mm3 (3.65-5.03) 02/24/16 06:15 Hgb 13.4 gm/dl (10.1-14.3) 02/24/16 06:15 Hct 41.6 % (30.3-42.9) 02/24/16 06:15 MCV 89 fl (79-97) 02/24/16 06:15 MCH 29 pg (28-32) 02/24/16 06:15 MCHC 32 % (30-34) 02/24/16 06:15 RDW 13.9 % (13.2-15.2) 02/24/16 06:15 Plt Count 213 K/mm3 (140-440) 02/24/16 06:15 Lymph % (Auto) 11.9 % (13.4-35.0) L 02/21/16 05:18 [place] % (Auto) 1.0 % (0.0-7.3) 02/21/16 05:18 Eos % (Auto) 0.0 % (0.0-4.3) 02/21/16 05:18 Baso % (Auto) 0.2 % (0.0-1.8) 02/21/16 05:18 Lymph # 0.8 K/mm3 (1.2-5.4) L 02/21/16 05:18 [place] # 0.1 K/mm3 (0.0-0.8) 02/21/16 05:18 Eos # 0.0 K/mm3 (0.0-0.4) 02/21/16 05:18 Baso # 0.0 K/mm3 (0.0-0.1) 02/21/16 05:18 Add Manual Diff Complete 02/24/16 06:15 Total Counted 100 02/24/16 06:15 Seg Neutrophils % Sales Operations Associate 02/24/16 06:15 Seg Neuts % (Manual) 94.0 % (40.0-70.0) H 02/24/16 06:15 Band Neutrophils % 0 % 02/24/16 06:15 Lymphocytes % (Manual) 5.0 % (13.4-35.0) L 02/24/16 06:15 Reactive Lymphs % (Man) 0 % 02/24/16 06:15 Monocytes % (Manual) 1.0 % (0.0-7.3) 02/24/16 06:15 Eosinophils % (Manual) 0 % (0.0-4.3) 02/24/16 06:15 Basophils % (Manual) 0 % (0.0-1.8) 02/24/16 06:15 Metamyelocytes % 0 % 02/24/16 06:15 Myelocytes % 0 % 02/24/16 06:15 Promyelocytes % 0 % 02/24/16 06:15 Blast Cells % 0 % 02/24/16 06:15 Nucleated RBC % Not Reportable 02/24/16 06:15 Seg Neutrophils # 5.6 K/mm3 (1.8-7.7) 02/21/16 05:18 Seg Neutrophils # Man 12.2 K/mm3 (1.8-7.7) H 02/24/16 06:15 Band Neutrophils # 0.0 K/mm3 02/24/16 06:15 Lymphocytes # (Manual) 0.7 K/mm3 (1.2-5.4) L 02/24/16 06:15 Abs React Lymphs (Man) 0.0 K/mm3 02/24/16 06:15 Monocytes # (Manual) 0.1 K/mm3 (0.0-0.8) 02/24/16 06:15 Eosinophils # (Manual) 0.0 K/mm3 (0.0-0.4) 02/24/16 06:15 Basophils # (Manual) 0.0 K/mm3 (0.0-0.1) 02/24/16 06:15 Metamyelocytes # 0.0 K/mm3 02/24/16 06:15 Myelocytes # 0.0 K/mm3 02/24/16 06:15 Promyelocytes # 0.0 K/mm3 02/24/16 06:15 Blast Cells # 0.0 K/mm3 02/24/16 06:15 WBC Morphology Not Reportable 02/24/16 06:15 Hypersegmented Neuts Not Reportable 02/24/16 06:15 Hyposegmented Neuts Not Reportable 02/24/16 06:15 Hypogranular Neuts Not Reportable 02/24/16 06:15 Smudge Cells Not Reportable 02/24/16 06:15 Toxic Granulation Not Reportable 02/24/16 06:15 Toxic Vacuolation Not Reportable 02/24/16 06:15 Dohle Bodies Not Reportable 02/24/16 06:15 Pelger-Huet Anomaly Not Reportable 02/24/16 06:15 Sabrina Rods Not Reportable 02/24/16 06:15 Platelet Estimate Appears normal 02/24/16 06:15 Clumped Platelets Not Reportable 02/24/16 06:15 Plt Clumps, EDTA Not Reportable 02/24/16 06:15 Large Platelets Not Reportable 02/24/16 06:15 Giant Platelets Not Reportable 02/24/16 06:15 Platelet Satelliting Not Reportable 02/24/16 06:15 Plt Morphology Comment Not Reportable 02/24/16 06:15 RBC Morphology Not Reportable 02/24/16 06:15 Dimorphic RBCs Not Reportable 02/24/16 06:15 Polychromasia Not Reportable 02/24/16 06:15 Hypochromasia Not Reportable 02/24/16 06:15 Poikilocytosis Not Reportable 02/24/16 06:15 Anisocytosis 1+ 02/24/16 06:15 Microcytosis Not Reportable 02/24/16 06:15 Macrocytosis Not Reportable 02/24/16 06:15 Spherocytes Not Reportable 02/24/16 06:15 Pappenheimer Bodies Not Reportable 02/24/16 06:15 Sickle Cells Not Reportable 02/24/16 06:15 Target Cells Not Reportable 02/24/16 06:15 Tear Drop Cells Not Reportable 02/24/16 06:15 Ovalocytes Not Reportable 02/24/16 06:15 Helmet Cells Not Reportable 02/24/16 06:15 [place] Bodies Not Reportable 02/24/16 06:15 [place] Rings Not Reportable 02/24/16 06:15 Gretel Cells Not Reportable 02/24/16 06:15 Bite Cells Not Reportable 02/24/16 06:15 Crenated Cell Not Reportable 02/24/16 06:15 Elliptocytes Not Reportable 02/24/16 06:15 Acanthocytes (Spur) Not Reportable 02/24/16 06:15 Rouleaux Not Reportable 02/24/16 06:15 Hemoglobin C Crystals Not Reportable 02/24/16 06:15 Schistocytes Not Reportable 02/24/16 06:15 Malaria parasites Not Reportable 02/24/16 06:15 Damien Bodies Not Reportable 02/24/16 06:15 Hem Pathologist Commnt No 02/24/16 06:15 PT 15.3 Sec. (12.2-14.9) H 02/24/16 06:15 INR 1.22 (0.87-1.13) H 02/24/16 06:15 APTT 43.9 Sec. (24.2-36.6) H 02/20/16 13:23 Sodium 139 mmol/L (137-145) 02/24/16 06:15 Potassium 4.0 mmol/L (3.6-5.0) 02/24/16 06:15 Chloride 99.5 mmol/L (98-107) 02/24/16 06:15 Carbon Dioxide 24 mmol/L (22-30) 02/24/16 06:15 Anion Gap 20 mmol/L 02/24/16 06:15 BUN 19 mg/dL (7-17) H 02/24/16 06:15 Creatinine 0.5 mg/dL (0.7-1.2) L 02/24/16 06:15 Estimated GFR > 60 ml/min 02/24/16 06:15 BUN/Creatinine Ratio 38.00 % 02/24/16 06:15 Glucose 200 mg/dL (65-100) H 02/24/16 06:15 POC Glucose 228 (70-105) H 02/24/16 11:44 Hemoglobin A1c 10.9 % (4-6) H 02/20/16 13:23 Calcium 8.6 mg/dL (8.4-10.2) 02/24/16 06:15 Total Creatine Kinase 140 units/L (30-135) H 02/20/16 13:23 CK-MB (CK-2) 2.9 ng/mL (0.0-4.0) 02/20/16 13:23 CK-MB (CK-2) Rel Index 2.0 (0-4) 02/20/16 13:23 Troponin T < 0.010 ng/mL (0.00-0.029) 02/20/16 13:23 NT-Pro-B Natriuret Pep 303.7 pg/mL (0-900) 02/20/16 13:23 Urine Color Straw (Yellow) 02/20/16 13: Urine Turbidity Clear (Clear) 02/20/16 13: Urine pH 7.0 (5.0-7.0) 02/20/16 13:29 Ur Specific [place] 1.013 (1.003-1.030) 02/20/16 13:29 Urine Protein 100 mg/dl mg/dL (Negative) 02/20/16 13:29 Urine Glucose (UA) >=500 mg/dL (Negative) 02/20/16 13: Urine Ketones Neg mg/dL (Negative) 02/20/16 13: Urine Blood Sm (Negative) 02/20/16 13:29 Urine Nitrite Neg (Negative) 02/20/16 13: Urine Bilirubin Neg (Negative) 02/20/16 13:29 Urine Urobilinogen < 2.0 mg/dL (<2.0) 02/20/16 13:29 Ur Leukocyte Esterase Neg (Negative) 02/20/16 13:29 Urine WBC (Auto) < 1.0 /HPF (0.0-6.0) 02/20/16 13: Urine RBC (Auto) 4.0 /HPF (0.0-6.0) 02/20/16 13:29
[2016-02-24] MEDS ORDERED: COUMADIN PO SCH (17:00)
[2016-02-24] MEDS: PERCOCET 5/325 PO PRN (21:30)
[2016-02-24] MEDS: LEVAQUIN 750MG/150ML 150 ML IV SCH (21:33)
[2016-02-24] MEDS: LEVEMIR SUB-Q SCH (22:16)
[2016-02-25 06:10] LABS: INR 1.26 (0.87-1.13)
[2016-02-25] MEDS ORDERED: COUMADIN PO SCH ×2 (08:20→17:00)
[2016-02-25] MEDS ORDERED: LOPRESSOR PO SCH ×2 (08:24→10:00)
[2016-02-25] MEDS: NOVOLOG SUB-Q SCH ×3 (08:38→18:19)
[2016-02-25] MEDS: TESSALON PERLES PO SCH (09:59)
[2016-02-25] MEDS ORDERED: NORVASC PO SCH (10:00)
[2016-02-25] MEDS: LOVENOX SUB-Q SCH (10:01)
--- NOTE | 2016-02-25 12:06 | Discharge Summary ---
Providers - Providers Date of Admission: 02/20/16 18:44 Date of discharge: 02/25/16 Attending physician: LLOYD NEAL Primary care physician: JUNIE CARDENAS MD Hospitalization Condition: Fair Hospital course: Discharge Diagnosis: Acute respiratory failure * Secondary to asthma exacerbation * resolved Acute Asthma exacerbation * cont inhaled bronchodilators as needed * complete 5 days of steroids Diabetes mellitus type 2 * Blood sugars significantly elevated likely secondary to corticosteroid use * ADA diet Chronic A. fib * Anticoagulated with Coumadin, but INR subtherapeutic; * Coumadin dose increased * started on beta yoel to rate control Hypertension, uncontrolled, * home meds reviewed * Continue metoprolol, lisinopril and norvasc for now Leukocytosis, secondary to steroid CAD s/p CABG * cont betablocker, ACEI, and statin Disposition: DC/TX HOME UNDER HOME HEALTH Time spent for discharge: 32 minutes Exam - Constitutional Vitals: Temp Pulse Resp BP Pulse Ox 98.7 F 71 18 195/90 97 02/24/16 20:00 02/24/16 22:00 02/24/16 22:00 02/25/16 10:00 02/24/16 22:00 Plan Durable Medical Equipment Needed Upon Discharge: Nebulizer Follow up with: PRIMARY CARE, [Primary Care Provider] - 3-5 Days Forms: Warfarin Discharge Instruction Prescriptions: Albuterol Sulfate [Albuterol 0.63% NEBS] 0.63 mg IH TID PRN #30 ml PRN Reason: Wheezing Warfarin [Coumadin] 5 mg PO DAILY@1700 #10 tablet predniSONE [Deltasone] 40 mg PO QDAY #5 tab Metoprolol [Lopressor TAB] 50 mg PO BID #60 tablet amLODIPine [Norvasc] 10 mg PO QDAY #30 tablet Lisinopril [Zestril TAB] 20 mg PO QDAY #30 tablet
[2016-02-25] MEDS ORDERED: ZESTRIL PO SCH (13:00)
[2016-02-25] MEDS: NACL 0.45% 1000 ML 1,000 ML IV SCH (13:35)
[2016-02-25] MEDS: DUONEB 0.5 MG-3 MG/3 ML SOLN IH SCH ×2 (15:09→15:16)
[2016-02-25 17:02] VITALS: BP 162/84
[2016-02-25] MEDS ORDERED: LEVAQUIN PO SCH (22:00)
== END 2016-02-25 18:45 | disposition home health service (06) | DRG 189 ==
LOC: ED 11:49 → 3A 18:44
PROVIDERS: ADMIT Internal Medicine; ATTEND Internal Medicine
DX: J96.00 Acute respiratory failure, unspecified whether with hypoxia or hypercapnia (principal); J45.41 Moderate persistent asthma with (acute) exacerbation; E11.9 Type 2 diabetes mellitus without complications; I48.2 Chronic atrial fibrillation; I11.0 Hypertensive heart disease with heart failure; I50.9 Heart failure, unspecified; J20.9 Acute bronchitis, unspecified; I25.10 Atherosclerotic heart disease of native coronary artery without angina pectoris; E78.5 Hyperlipidemia, unspecified; D72.829 Elevated white blood cell count, unspecified; Z79.01 Long term (current) use of anticoagulants; I25.2 Old myocardial infarction; Z95.1 Presence of aortocoronary bypass graft; Z79.4 Long term (current) use of insulin; Z79.899 Other long term (current) drug therapy; Z79.84 Long term (current) use of oral hypoglycemic drugs; Z82.49 Family history of ischemic heart disease and other diseases of the circulatory system
CPT/HCPCS: 36415; 71020; 80048; 81001; 82550; 82553; 82962; 83036; 83880; 84484; 85007; 85025; 85610; 85730; 87040; 93005; 93010; 94640; 94760; 96372; 96374; J0360; J1650; J1815; J1818; J1956; J2405; J2930; J7512